=== PATIENT | female | born 1940 | race African-American/Black ===

== ENCOUNTER 2021-01-11 10:14 | Emergency (ER) | payer OTHER ==
[~2021-01-11] VITALS: Ht 152.4 cm; Wt 67.1 kg
--- NOTE | ~2021-01-11 | EMS ---
[address] [address] EMS Patient Care Report Name: SEVERINO MAHONEY Room #: DEP BABLINA Diaz#: [id number] Admission: 01/11/21 Attend Phys: Discharge: 01/11/21 Date of : 42 Report #: [id number] THIS REPORT FOR: //name// Report Transmitted: 01/11/2021 12:35 EMS Care Summary [place], [place]/[facility] Incident [id number] @ 01/11/2021 09:43 Incident Location [address] [place] [address] Patient SEVERINO MAHONEY Female, 80 Years 1940 Patient Address [address] [place] [address] Patient History Hypertension (HTN),Type 2 Diabetes,Nonrheumatic aortic stenosis, Patient Allergies Codeine,Penicillin allergy,Sulfa, Patient Medications Carvedilol, Losartan, Ferrous Sulfate, Aspirin, Amlodipine, Temazepam, Venlafaxine, Pravastatin, Metformin, Chief Complaint FELT LIKE SHE WAS ABOUT TO PASS OUT/ WEAK Disposition Transported No Lights/[place] Dispatch Reason Unconscious/Fainting Transported To [facility] Narrative UPON ARRIVAL PT SUPINE ON COUCH CONSCIOUS AND ALERT. PT HAS BEEN FEELING EXTRA TIRED AND WEAK THIS MORNING. PT FELT LIKE SHE WAS ABOUT TO PASS OUT WHEN NURSE [address] [address] EMS Patient Care Report Name: SEVERINO MAHONEY Room #: DEP ER Joe#: [id number] Admission: 01/11/21 Attend Phys: Discharge: 01/11/21 Date of : 42 Report #: [id number] CALLED. PT THINKS SHE MAY AVE ACCIDENTLY TAKEN A SLEEPING PILL THIS MORNING INSTEAD OF KEFLEX THEY LOOK THE SAME. PT TOOK SLEEPING PILL LAST NIGHT ALSO. PT ASSISTED TO COT AND TRANSPORTED TO [facility]. Initial Vitals @09:58P: 59,BP: 111/55,CO: 2,SpO2: 96, @PTAP: 56,R: 16,BP: 94/59,Pain: 0/10,GCS: 14,Glucose: 189,SpO2: 97,Revised Trauma: 12, @10:07P: 57,R: 16,BP: 130/74,Pain: 0/10,GCS: 15,CO: 2,SpO2: 97,Revised Trauma: 12, Assessments @09:56MENTAL:Person Oriented,Time Oriented,Event Oriented,Place Oriented,SKIN:HEENT:Head/Face: No Abnormalities,LUNG SOUNDS:General: No Abnormalities,ABDOMEN:General: No Abnormalities,PELVIS//GI:EXTREMITIES:Left Arm: No Abnormalities,Right Arm: No Abnormalities,Left Leg: No Abnormalities,Right Leg: No Abnormalities,PULSE:Radial: 2+ Normal,NEURO:No Abnormalities, Impression Generalized Weakness Procedures @09:55ALS AssessmentResponse: UnchangedSucceeded@09:583-Lead ECGResponse: UnchangedSucceeded Timeline BACK HOE OPERATOR,BP: 94/59 M,PULSE: 56,RR: 16 R,SPO2: 97 Ox,ETCO2: ,B,PAIN: 0,GCS: 14, 09:42,Call Received 09:42,Dispatch Notified 09:43,Dispatched 09:44,En Route 09:51,On Scene 09:54,At Patient 09:55,ALS Assessment,Response: UnchangedSucceeded, 09:58,3-Lead ECG,Response: UnchangedSucceeded, 09:58,BP: 111/55 M,PULSE: 59,RR: R,SPO2: 96 Ox,ETCO2: ,BG: ,PAIN: ,GCS: , 10:05,Depart Scene 10:07,BP: 130/74 M,PULSE: 57,RR: 16 R,SPO2: 97 Ox,ETCO2: ,BG: ,PAIN: 0,GCS: 15, 10:09,At Destination 10:29,Call Closed Disclaimer v1.1 Copyright 2020 [employer] This EMS Care Summary contains data elements from the applicable legal record (which may be displayed differently). It is designed to provide pertinent [address] [address] EMS Patient Care Report Name: SEVERINO MAHONEY Room #: DEP BALBINA Diaz#: [id number] Admission: 01/11/21 Attend Phys: Discharge: 01/11/21 Date of : 42 Report #: [id number] information for the following purposes: continuity of care, clinical quality, and state data reporting. The complete legal record is available to ED staff and administrators of the receiving hospital in [facility]'s Patient Tracker. All data is provided "as is."
[2021-01-11] MEDS ORDERED: LOSARTAN POTAS100 MG PO (10:24)
[2021-01-11] MEDS ORDERED: NORVASC5 MG PO (10:25)
[2021-01-11] MEDS ORDERED: VENLAFAXINE HC150 M1 PO (10:25)
[2021-01-11] MEDS ORDERED: PRAVASTATIN SOD80 MG PO (10:25)
[2021-01-11] MEDS ORDERED: RESTORIL15 M1 PO (10:25)
[2021-01-11] MEDS ORDERED: ASA81BEC PO (10:25)
[2021-01-11] MEDS ORDERED: CARVEDILOL12.5 MG PO (10:26)
[2021-01-11 10:56] LABS: ABSOLUTE NEUTROPHILS 5.2 thou/uL (1.4-8.2); BASOPHILS 0.9 % (0.0-2.0); EOSINOPHILS 3.6 % (0.0-3.0); HEMATOCRIT 34.4 % (37.0-47.0); HEMOGLOBIN 11.6 gm/dL (12.0-15.0); LYMPHOCYTES 11.1 % (24.0-44.0); MCH 31.5 pg (26.0-34.0); MCHC 33.6 g/dL (28.0-37.0); MCV 93.7 fL (80.0-100.0); MONOCYTES 9.4 % (1.0-8.0); PLATELET COUNT 166 thou/uL (150-400); RBC 3.67 mil/uL (4.20-5.00); RDW 12.5 % (10.5-14.5); WBC 6.9 thou/uL (4.0-11.0)
[2021-01-11 11:03] LABS: ANION GAP 10 mmol/L (7-16); BUN 26 mg/dL (7-18); CALCIUM 8.9 mg/dL (8.5-10.1); CHLORIDE 103 mmol/L (98-107); CO2 23 mmol/L (21-32); CREATININE 1.8 mg/dL (0.6-1.0); GLUCOSE 163 mg/dL (74-106); POTASSIUM 4.7 mmol/L (3.5-5.1); SODIUM 136 mmol/L (136-145)
[2021-01-11 11:11] LABS: TROPONIN-I <0.06 ng/mL (<0.06)
[2021-01-11] MEDS ORDERED: KEFLEX250 MG PO (11:34)
[2021-01-11 12:46] VITALS: BP 185/81
--- NOTE | 2021-01-13 09:21 | EKG ---
[place] [address] [facility] [place] [address] ELECTROCARDIOGRAM REPORT Name: SEVERINO MAHONEY Room #: DEP [facility] CLEARLAKEMargueriteMarguerite#: [id number] Admission: 01/11/21 Attend Phys: Discharge: 01/11/21 Date of : 42 Report #: [id number] [facility] ED Test Date: 2021-01-11 Test Time: 10:53:04 Pat Name: SEVERINO MAHONEY Department: Room: Gender: F Nutrition Specialist: JCHAIREZ : 1940 Requested By: Jorge Cannon Order Number: [id number] MD: Preston Portillo Measurements Intervals [place] Rate: 57 P: 59 WY: 227 QRS: 26 QRSD: 80 T: 62 QT: 448 QTc: 437 Interpretive Statements Sinus bradycardia Prolonged [place] interval Anteroseptal infarct, old No previous ECG available for comparison Electronically Signed On 01-13-2021 9:21:44 CDT by Preston Portillo [email or web address] <ELECTRONICALLY SIGNED> By: Preston Portillo MD, [facility] 01/13/21 0921 1053 1053 Preston Portillo MD, FACC /EPI
== END 2021-01-11 12:46 ==
LOC: ER 10:14
PROVIDERS: Emergency Medicine
DX: R42 Dizziness and giddiness (principal); T42.4X5A Adverse effect of benzodiazepines, initial encounter; R53.1 Weakness; I12.9 Hypertensive chronic kidney disease with stage 1 through stage 4 chronic kidney disease, or unspecified chronic kidney disease; E11.22 Type 2 diabetes mellitus with diabetic chronic kidney disease; N18.30 Chronic kidney disease, stage 3 unspecified; E03.9 Hypothyroidism, unspecified; E11.40 Type 2 diabetes mellitus with diabetic neuropathy, unspecified; Z88.5 Allergy status to narcotic agent; Z88.0 Allergy status to penicillin; Z88.2 Allergy status to sulfonamides; Z79.899 Other long term (current) drug therapy; Z79.82 Long term (current) use of aspirin; Y92.89 Other specified places as the place of occurrence of the external cause